=== PATIENT | male | born 1960 | race Caucasian/White ===

== ENCOUNTER 2024-05-16 16:07 | Emergency (ER) | payer MEDICARE, SELFPAY ==
[2024-05-16 16:13] VITALS: BP 150/100; PULSE 77; RESP 16; TEMP 36.5; O2SAT 98; BMI 28.1
--- NOTE | 2024-05-16 16:18 | CRLHL7_ITS ---
For Patients: As a result of the Century Cures Act, medical imaging exams and procedure reports are released immediately into your electronic medical record. You may view this report before your referring provider. If you have questions, please contact your health care provider. INDICATION: Blunt trauma. TECHNIQUE: Right forearm three views. COMPARISON: None. FINDINGS: Comminuted, impacted intra-articular fracture of the distal radius with ventral angulation/displacement of the distal fracture fragment. Mildly displaced fracture of the ulnar styloid. No additional evidence of fracture. Degenerative changes greatest at the 1st carpometacarpal joint. Soft tissue swelling about the wrist. Punctate focus of increased density near the 1st metacarpal phalangeal joint. IMPRESSION: 1. Comminuted, intra-articular and displaced fracture of the distal radius. 2. Ulnar styloid fracture. 3. Punctate foreign body near the 1st metacarpal phalangeal joint. Dictated by Terrance Mcmillan MD @ 05/16/2024 4:49:52 PM (Electronically Signed)
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
[2024-05-16] MEDS: LIDOCAINE 1% MDV 20 ML INJECTION (17:10)
--- OUTSIDE RECORDS SUMMARY | 2024-05-16 17:26 | XMS_ITS | Clinical Summary ---
Author Organization [facility] Address [place], [place] [address] Care Team Providers Care Button Station Worker Name Role Phone Negrito Valdez MD Primary Care Provider [phone] Allergies No known active allergies Medications No known medications Active Problems No known active problems Immunizations Name Administration Dates Next Due Tdap 04/05/2009 Family History Medical History Relation Name Comments Genetic Other Sister had kidn ey stone Relation Name Status Comments Other Social History Tobacco Use Types Packs/Day Years Used Date Smoking Tobacco: Never Smokeless Tobacco: Never Alcohol Use Standard Drinks/Week Comments Not Asked 0 (1 standard drink = 0.6 oz pur e alcohol) Sex and Gender Information Value Date Recorded Sex Assigned at Not on file 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 Gender Identity Not on file Sexual Orientation Not on file Obstetrics History Last Filed Vital Signs Vital Sign Reading Time Taken Comments Blood Pressure 120/78 04/19/2012 1:58 PM FRUIT WASHER Pulse 78 04/19/2012 1:58 PM FRUIT WASHER Temperature 36.8 C (98.3 F) 04/19/2012 1:58 PM FRUIT WASHER Respiratory Rate - - Oxygen Saturation 96% 04/19/2012 1:58 PM FRUIT WASHER Inhaled Oxygen Concentration - - Weight 89.1 kg (196 lb 6.4 oz) 04/19/2012 1:58 P M FRUIT WASHER Height - - Body Mass Index - - Plan of Treatment Health Maintenance Due Date Last Done Comments Depression screening for age 12+ 1971 HIV for age 15-65 1974 BMI (ht and wt on same day) for age 18+ 1977 Hepatitis C screening for age 18-79 1977 Colonoscopy through age 75 02/12/2004 Lipids for age 45-75 02/12/2004 Pneumococcal series for age 50+ (1 of 1 - PCV) 009 Zoster (shingles) series for age 50+ (1 of 2) 02/12/20 09 Tetanus booster 04/05/2019 04/05/2009 COVID-19 vaccine series (1 - 2023- season) Influenza for age 65+ 02/12/2024 RSV vaccine for adults or pr egnancy (1 - 1-dose 75+ series) 2034 Tdap Completed 04/05/2009 Insurance [facility] [place] [id number] Care Teams Button Station Worker Relationship Specialty Start Date End Date Negrito Valdez MD PCP - General Family Practice 12/29/10
[2024-05-16 17:30] VITALS: BP 163/88
[2024-05-16 17:49] VITALS: PULSE 76; RESP 16; O2SAT 97
--- NOTE | 2024-05-16 18:25 | CRLHL7_ITS ---
For Patients: As a result of the Century Cures Act, medical imaging exams and procedure reports are released immediately into your electronic medical record. You may view this report before your referring provider. If you have questions, please contact your health care provider. INDICATION: : Postreduction TECHNIQUE: Three views right wrist COMPARISON: Same day forearm radiographs FINDINGS: The lateral projection is at a slight oblique. Comminuted intra-articular right distal radial fracture. Significant articular surface gap persists of at least 3 millimeters. Mildly displaced ulnar styloid fracture again seen. Small metallic jacklyn at the ulnar aspect of the right thumb metacarpal phalangeal joint. Radioulnar alignment is not well evaluated. Radiocarpal alignment is normal. Splint material in place. IMPRESSION: Redemonstrated displaced intra-articular right distal radial fracture. Dictated by Karla Alfonso MD @ 05/16/2024 7:06:39 PM (Electronically Signed)
== END 2024-05-16 18:59 | disposition home or self-care (01) ==
PROVIDERS: Emergency Provider Emergency Medicine
DX: S52.571A Other intraarticular fracture of lower end of right radius, initial encounter for closed fracture (principal); W23.0XXA Caught, crushed, jammed, or pinched between moving objects, initial encounter; Y92.71 Barn as the place of occurrence of the external cause
CPT/HCPCS: 29125; 73090; 73110; 99283; J2003

== ENCOUNTER 2024-05-19 11:51 | Outpatient (CLI) | payer MEDICARE, SELFPAY | END 2024-05-19 11:52 | disposition home or self-care (01) | PROVIDERS: Visit Provider Family Medicine | DX: Z13.6 Encounter for screening for cardiovascular disorders (principal); Z12.5 Encounter for screening for malignant neoplasm of prostate | CPT/HCPCS: 80061; G0103 ==

== ENCOUNTER 2024-05-22 11:26 | Day surgery (SDC) | payer MEDICARE, SELFPAY ==
[2024-05-22] VITALS (7 sets, daily range): BP systolic 111–146; BP diastolic 65–81; PULSE 55–68; RESP 16–20; TEMP 36.2–36.8; O2SAT 92–100; BMI 28.1
--- OUTSIDE RECORDS SUMMARY | 2024-05-22 11:29 | XMS_ITS | Clinical Summary ---
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 Gender Identity Not on file Sexual Orientation Not on file Obstetrics History Last Filed Vital Signs Vital Sign Reading Time Taken Comments Blood Pressure 120/78 04/19/2012 1:58 PM OFFICE CHAIR ASSEMBLER Pulse 78 04/19/2012 1:58 PM OFFICE CHAIR ASSEMBLER Temperature 36.8 C (98.3 F) 04/19/2012 1:58 PM OFFICE CHAIR ASSEMBLER Respiratory Rate - - Oxygen Saturation 96% 04/19/2012 1:58 PM OFFICE CHAIR ASSEMBLER Inhaled Oxygen Concentration - - Weight 89.1 kg (196 lb 6.4 oz) 04/19/2012 1:58 P M OFFICE CHAIR ASSEMBLER Height - - Body Mass Index - [...] 75+ series) 2034 Tdap Completed 04/05/2009 Insurance [facility] [place] [id number] Care Teams Food Service Employee Relationship Specialty Start Date End Date Negrito Valdez MD PCP - General Family Practice 12/29/10
[2024-05-22] MEDS: LACTATED RINGERS 1000 ML 1,000 ML 100 ML IV (11:55)
--- NOTE | 2024-05-22 12:12 | W.PM.H&PU ---
History & Physical Update History & Physical Update H&P Reviewed and patient assessed: No changes noted
[2024-05-22] MEDS: SODIUM CHLORIDE 0.9 % (FLUSH) 10 ML SYRINGE IVF (12:22)
[2024-05-22] MEDS: 0.9 % SODIUM CHLORIDE 500 ML 500 ML 100 ML IV ×2 (12:30→14:46)
--- NOTE | 2024-05-22 12:31 | SUR.PREOP ---
TIME?OUT:?12:31 PT/RN/MDA?VERIFICATION?OF?SURGICAL?SITE,?PROCEDURE,?AND?CONSENT OBTAINED?PRIOR?TO?INVASIVE?PROCEDURE.YES
[2024-05-22] MEDS: fentaNYL 100 MCG/2 ML inj IVP (12:32)
[2024-05-22] MEDS: MIDAZOLAM HCL 1 MG/ML inj IVP (12:32)
--- NOTE | 2024-05-22 12:39 | P.ANES_ITS ---
Anesthesia Charges Start Date/Time Anesthesia Start Date: 05/22/24 Anesthesia Start Time: 12:42 Stop Date/Time Anesthesia Stop Date: 05/22/24 Anesthesia Stop Time: 14:47 Coding CPT Codes CPT Codes: ANESTH LOWER ARM SURGERY - 67805 ([id number]) P1 - NORMAL HEALTHY PATIENT, QK - FINANCIAL BROKERS 2-4 CNCRNT ANES PROC, QX - GROUNDING ENGINEER SVDinora W/ MED DIRECTION
--- NOTE | 2024-05-22 12:39 | P.NB_ITS ---
Nerve Block Nerve Block Time Seen by Provider: 12:35 Date Seen: 05/22/24 Type of block requested by surgeon for post-operative analgesia: axillary Side: right Time out performed: Yes Verification of patient name: Yes Verification of date of : Yes Site marking: site marked Name of person performing procedure: Pérez Continuous monitoring Was continuous monitoring of O2 sat, B/P, monitoring coordinator, recorded every 15 minutes?: Yes Procedure Checklist: sterile prep, needles and gloves Ultrasound guided. Images saved: Yes Medications given in 5ml increments after negative aspiration: Ropivicaine %: 0.5 mL: 30 Needle gauge: 22 Patient tolerated procedure well: Yes Additional comments: Needle noted adjacent to nerve Block Charges Block Charge (with Pro Fee): Brachial Plexus Use of Ultrasound Machine for Block: Yes- US Guidance/pain block
--- NOTE | 2024-05-22 12:39 | W.ANESCHARGE ---
Anesthesia Charges Start Date/Time Anesthesia Start Date: 05/22/24 Anesthesia Start Time: 12:42 Stop Date/Time Anesthesia Stop Date: 05/22/24 Anesthesia Stop Time: 14:47 Coding CPT Codes CPT Codes: ANESTH LOWER ARM SURGERY - 73885 ([id number]) P1 - NORMAL HEALTHY PATIENT, QK - LAGGING MACHINE OPERATOR 2-4 CNCRNT ANES PROC, QX - JACQUARD LOOM CARD CHANGER SVDinora W/ MED DIRECTION
--- NOTE | 2024-05-22 13:00 | CRLHL7_ITS ---
For Patients: As a result of the Century Cures Act, medical imaging exams and procedure reports are released immediately into your electronic medical record. You may view this report before your referring provider. If you have questions, please contact your health care provider. INDICATION: Right distal radius. TECHNIQUE: Three spot images of the wrist. 0.41 mGy. FINDINGS: Right wrist ORIF. Tiny radiopaque foreign body in the thumb at the level of the CMC joint. Dictated by Dm Witt MD @ 05/23/2024 9:25:44 AM (Electronically Signed)
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
--- NOTE | 2024-05-22 14:53 | P.ANES_ITS ---
Anesthesia Charges Start Date/Time Anesthesia Start Date: 05/22/24 Anesthesia Start Time: 12:42 Stop Date/Time Anesthesia Stop Date: 05/22/24 Anesthesia Stop Time: 14:47 Coding CPT Codes CPT Codes: ANESTH LOWER ARM SURGERY - 63122 ([id number]) P1 - NORMAL HEALTHY PATIENT, QK - SQL SERVER BI DEVELOPER 2-4 CNCRNT ANES PROC, QX - STUDY ABROAD COORDINATOR SVDinora W/ MED DIRECTION
--- NOTE | 2024-05-22 14:53 | W.ANESCHARGE ---
Anesthesia Charges Start Date/Time Anesthesia Start Date: 05/22/24 Anesthesia Start Time: 12:42 Stop Date/Time Anesthesia Stop Date: 05/22/24 Anesthesia Stop Time: 14:47 Coding CPT Codes CPT Codes: ANESTH LOWER ARM SURGERY - 39038 ([id number]) P1 - NORMAL HEALTHY PATIENT, QK - CADMIUM BURNER 2-4 CNCRNT ANES PROC, QX - VENEER TRIMMER SVDinora W/ MED DIRECTION
== END 2024-05-22 15:48 | disposition home or self-care (01) ==
PROVIDERS: Visit Provider Orthopaedic Surgery Sports Medicine
PROC: (CPT 25575; principal; 2024-05-22 13:00)
DX: S52.571A Other intraarticular fracture of lower end of right radius, initial encounter for closed fracture (principal); G89.18 Other acute postprocedural pain
CPT/HCPCS: 25609; 01830; 64415; 73110; 76942; C1713; J2250; J2704; J2795; J3010; J7030; J7120

== ENCOUNTER 2024-09-05 07:30 | Outpatient (RCR) | payer MEDICARE, SELFPAY ==
--- NOTE | 2024-05-24 08:03 | ED.GENADULT ---
HPI - General Adult General Date Seen: 05/16/24 Time Seen by Provider: 05/24/24 08:04 History of Present Illness HPI narrative: This is an addendum to my patient's ER note from 05/16/2024. I inadvertently omitted my physical exam from the previous note. Related Data Previous Rx's ?Medication ?Instructions ?Recorded oxycodone 5 mg tablet 5 mg PO Q4-8H PRN pain #15 tabs 05/22/24 sennosides 8.6 mg-docusate sodium 1 tab-cap PO BID #10 tabs 05/22/24 50 mg tablet (Senna-S) Allergies Allergy/AdvReac Type Severity Reaction Status Date / Time No Known Drug Allergies Allergy Verified 05/19/24 11:23 [facility] Medical History History of kidney stones ?Z87.442 - Personal history of urinary calculi (ICD-10) Surgical History (Updated 05/22/24 @ 14:20 by Rosa Zimmer ~ [facility], [facility]) History of open reduction and internal fixation (ORIF) procedure (05/22/24) ?Z98.890 - Other specified postprocedural states (ICD-10) H/O thumb surgery ?Z98.890 - Other specified postprocedural states (ICD-10) Social History Smoking Status: Never smoker Do you use any of these nicotine containing products: None How often do you have a drink containing alcohol: never AUDIT-C Alcohol total score: 0 Non-prescribed substance use: denies use Caffeine: Yes Exam Narrative: Exam Narrative: Constitutional: Appears well-developed and well-nourished. Alert. Conversant. Non toxic. HENT: Head: Atraumatic. No depressed skull fracture, Raccoon Eyes, Rogers's sign, or hemotympanum. Face normal. TMs normal Nose: Nose normal. Mouth/Throat: Oral mucosa is clear and moist. no trismus. Pharynx normal. Eyes: Conjunctivae normal. EOM normal. Pupils equal, round, and reactive to light. No scleral icterus. Neck: Normal range of motion. Neck supple. No tracheal deviation present. Cardiovascular: Normal rate, regular rhythm. No gallop. No friction rub. No murmur heard. Symmetric radial artery pulses Pulmonary/Chest: Effort normal. No stridor. No respiratory distress. No wheezes. No rales. No rhonchi . No tenderness. Abdominal: Soft. No distension. No mass. No tenderness. No rebound. No guarding. Musculoskeletal: No CT or L-spine tenderness. RUE: Clavicle, shoulder, proximal humerus, deltoid, biceps, triceps, elbow are nontender. No tenderness of the forearm but he has limited pronation and supination because of wrist pain. He has tenderness with swelling and suspected deformity at the distal radius. Seems to be subtle swelling or volar angulation. Not a ?dinner fork? deformity. Range of motion the wrist is somewhat limited by pain. He is able to flex and extend about 20 or 30?. No tenderness to palpation of the thumb, thenar eminence, body of the hand, or digits. Intact radial, median, ulnar sensory function. Normal distal cap refill. Palpable and normal radial pulse per LUE: Normal range of motion. No tenderness. No deformity RLE: Normal range of motion. No edema. No tenderness. No deformity LLE: Normal range of motion. No edema. No tenderness. No deformity Neurological: Alert and oriented to person, place, and time. Normal strength. CN II-VII intact. No sensory deficit. GCS eye subscore is 4. GCS verbal subscore is 5. GCS motor subscore is 6. Normal coordination Skin: Skin is warm and dry. No rash noted. No pallor. Normal capillary refill. Psychiatric: Normal mood. Normal affect. Discharge Plan Departure Take Home Meds: No Action sennosides-docusate sodium [Senna-S] 8.6-50 mg tablet 1 tab-cap PO BID Qty: 10 1RF Rx Instructions: Take while using narcotics. If loose stools, then stop this medication. oxycodone 5 mg tablet 5 mg PO Q4-8H PRN (Reason: pain) Qty: 15 0RF
--- NOTE | 2024-05-24 11:16 | ED.GENADULT ---
HPI - General Adult General Date Seen: 05/16/24 History of Present Illness HPI narrative: This is an addendum to this patient's ER note from 05/16. I inadvertently omitted the HPI section of my note. Please see my previous notes for the patient's ER course, x-ray findings, medical decision making. This was is pleasant 64-year-old gentleman who is generally healthy. 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 He presents to the ER today, accompanied by his ex-, for evaluation of right arm and wrist pain. Prior to arrival he was trying to put some cows into a dominguez when 1 of the cows pushed sideways against the metal fence and he got his right wrist/arm caught between the fence and the post. He suffered an injury. He is having pain in the right wrist and little bit pain rating up to the right shoulder as well. He feels as though he is having trouble moving his wrist and it looks deformed, probably broken. He has no other injuries. He he was not knocked down. He did not hit his head. He does not take any blood thinners. No other pain more proximally in his arms such as in the humerus or shoulder. No head or neck pain. No injuries to his torso. No other significant injuries to his hips, lower extremities. He has no associated numbness or tingling in his right hand. Related Data Previous Rx's ?Medication ?Instructions ?Recorded oxycodone 5 mg tablet 5 mg PO Q4-8H PRN pain #15 tabs 05/22/24 sennosides 8.6 mg-docusate sodium 1 tab-cap PO BID #10 tabs 05/22/24 50 mg tablet (Senna-S) Allergies Allergy/AdvReac Type Severity Reaction Status Date / Time No Known Drug Allergies Allergy Verified 05/19/24 11:23 [facility] Medical History History of kidney stones ?Z87.442 - Personal history of urinary calculi (ICD-10) Surgical History (Updated 05/22/24 @ 14:20 by Rosa Zimmer ~ [facility], [facility]) History of open reduction and internal fixation (ORIF) procedure (05/22/24) ?Z98.890 - Other specified postprocedural states (ICD-10) H/O thumb surgery ?Z98.890 - Other specified postprocedural states (ICD-10) Social History Smoking Status: Never smoker Do you use any of these nicotine containing products: None How often do you have a drink containing alcohol: never AUDIT-C Alcohol total score: 0 Non-prescribed substance use: denies use Caffeine: Yes Discharge Plan Departure Take Home Meds: No Action sennosides-docusate sodium [Senna-S] 8.6-50 mg tablet 1 tab-cap PO BID Qty: 10 1RF Rx Instructions: Take while using narcotics. If loose stools, then stop this medication. oxycodone 5 mg tablet 5 mg PO Q4-8H PRN (Reason: pain) Qty: 15 0RF
--- NOTE | 2024-06-13 16:46 | OT.OPOE ---
OT Outpatient Ortho Eval OT Outpatient Ortho Eval* Start: 06/09/24 16:10 Freq: Status: Active Protocol: Document 06/13/24 15:17 AMB (Rec: 06/13/24 16:43 AMB [id number]) E-signed By Teena Carvajal, OTR/L, CLT, PIPE CONNECTOR OT OP Ortho Eval Details Complexity Complexity Low Insurance Information Insurance Information Blue Cross/Blue Shield, Medicare B Other Insurance BCBS [place] 220 G Insurance Information Comments MC cert due 09/11/24 Outpatient History/Precautions Current Condition/Medical Diagnosis Referring Provider Dr Grover Medical Diagnoses Z98.[address] fiore with ORIF Treatment Diagnosis M25.531 Pain in RUE wrist M25.631 Stiffness RUE wrist R53.1 Weakness RUE hand, wrist , forearm Date of Onset DOI: 05/16/24, DOS: 05/22/24 Precautions Lifting Restrictions Medical Conditions None Medical/Functional History Medical History Reviewed Yes Prior Level of Function/Mobility Pt states he did break his right thumb almost completely off when he was 15yo. He never regained full ROM and his thumb has always been numb since. 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 Pt states he knew right away that it was broken, he drove himself to the ER where it was reduced and he was referred to orthopedics and underwent ORIF of the DR on 05/22/24. Pt states he really has very little to no pain. Pt had his cast removed today and was referred to OT for orthoplast splint and eval and treat. Pt states he still has to be able to tend to his cattle which includes lifting 50# elizabeth of hay and feed. Pt does have some help but still needs to be able to work every day. Pt denies pain but has been noticing that his IF feels numb, states this is new, his thumb is also numb but states that has been numb since his injury at the age of 15. Goniometric Comments Goniometric Comments Goniometric Comments 06/13/24 AROM of BUE is WNL throughout with the exception of the RUE forearm, wrist and hand. AROM of the RUE is as follows: Forearm: Pro/Sup: 35/35 Wrist: Flex/Ext: 30/0 UD/RD: 5/5 Hand: Opposition: Tip of the RF Composite Fist: -4cm from tip of MF to DPC. Hand Pinch/Colorer Hides And Skins Strength Comments Comments 06/13/24 Too early for strength testing. 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 Moderate swelling is appreciated throughout all fingers, thumb and wrist. Surgical incision is still covered with surgical glue, clean, dry, no s/s of infection. Sensation Sensation Assessment Summary Comments 06/13/24 Thumb is numb, this is not new, states it's been numb since an injury as a 15yo, however, pt is noticing mild paresthesia in his IF, this is new, likely related to swelling, trauma and compression of median nn, will monitor. OT Problems Problems Problems Decreased Strength,Decreased Range of Motion,Decreased Dexterity,Pain,Decreased Coordination,Lifting,Gripping Other Problems Writing,Opening Containers, Dressing,Fasteners Patient Potential Good Assessment Assessment Assessment Pt is a very pleasant 64yo referred to OT for custom orthosis and eval and treat following RUE DR fiore with ORIF. Pt demonstrates significant swelling, weakness, and limited AROM throughout the RUE hand, wrist, and forearm. These limitations interfere with pt's ability to lift, carry, barber instructor, twist, etc with his RUE. 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 Pt will benefit from skilled OT intervention to address limitations and to restore full, pain-free use of his RUE . Occupational Therapy Treatment Plan - OP Potential Rehabilitation Potential Good Set Goals Goals Set with Patient Yes Goals Goals 1. Pt will be independent and compliant with HEP in order to resume full, pain-free use of the involved UE. 3 weeks 2. Pt will demonstrate full, pain-free AROM of the involved UE in order to improve ability to grasp and hold. 6 weeks 3. Pt will demonstrate pain- free barber instructor and pinch strength comparable to the uninvolved side in order to improve functional grasp, hold, reach, and lifting ability needed to complete self-care, leisure tasks, and work activities. 8 weeks. Treatment Plan Treatment Plan Evaluation,Edema Control,Joint Mobilization,Manual Therapy, Splinting,Wound Care/Scar Management,Therapeutic Exercise,Therapeutic Activities,Self Care/Home Management,Education Expected Frequency 1-2x Week Expected Duration 8-10 Weeks Home Program Home Program Home Program Initiated Home Program Specifics Pt was provided with training and practice in HEP for non- resisted mm pumps to reduce swelling and gentle AROM exs for his hand, wrist and forearm in order to retore full ROM/use of RUE. Following demo, pt is able to complete exs with minimal cues. Pt was provided with written instructions for use at home. Certification Certification Statement I Certify That: Therapy Services Provided, Therapy Plan Established, Therapy Plan Reviewed Certification Information Clinic ID # [id number] Initial Certification Date 06/13/24 Recertification Due Date 09/11/24 Provider Signature Required Yes Provider Signature Shows Agreement With POC & Medical Necessity Physician NPI Number Write NPI# Here Physician Comment/Change Comment or Changes Physician Signature & Date Requested Please Sign/Date Here
--- NOTE | 2024-09-05 11:44 | OT.OPODN ---
OT Outpatient Ortho Daily Note OT Outpatient Ortho Daily Note* Start: 06/09/24 16:10 Freq: Status: Active Protocol: Document 09/05/24 07:28 AMB (Rec: 09/05/24 11:44 AMB [id number]) E-signed By Teena Carvajal, OTR/L, CLT, SORT LINE Type of Note Type of Note Type of Note Daily Note,Recert/Progress Note Visit Number [id number] Insurance Information Insurance Blue Cross/Blue Shield,Medicare B Information Other Insurance [place]BS [place] 220 G Insurance MC cert due 12/04/24 Information Comments Outpatient History/Precautions Current Condition/Medical Diagnosis Referring Provider Dr Grover Medical Diagnoses Z98.[address] fiore with ORIF Treatment Diagnosis M25.531 Pain in RUE wrist M25.631 Stiffness RUE wrist R53.1 Weakness RUE hand, wrist, forearm Date of Onset DOI: 05/16/24, DOS: 05/22/24 Precautions Lifting Restrictions Medical Conditions None Medical/Functional History Medical History Yes Reviewed Prior Level of Pt states he did break his right thumb almost Function/Mobility completely off when he was 15yo. He never regained full ROM and his thumb has always been numb since. 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 Wrist is aching sometimes, also hard to run the controls on his tractor as he has to use his right hand for all the controls, IF gets really swollen and sore. 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 Pt has hired someone to help, but now his 95yo father has been in the hospital, he usually helps with farming but is now not able to, so he may need to look into hiring another person to help as he knows all the heavy work he does is not helping him heal. Pt feels his pain and swelling is more related to arthritis. OT OP Daily Ortho Note/Assessment Therapeutic Exercise Therapeutic Exercise 13 Minutes (minutes) Therapeutic Exercise Review of HEP with emphasis on care for arthritic Comments symptoms in his fingers including self-massage, contrast bath, and AROM with non-resisted muscle pumps. Also review of isolated joint PROM followed by composite finger stretch into flexion and into extension. Also provided silicone finger sleeves to help with swelling. Manual Therapy Manual Therapy 22 Minutes (minutes) Manual Therapy Provided MT with focus on decongestive tissue Comments mobilization and very gentle AAROM to fingers, wrist, and forearm in order to reduce swelling and improve ROM in LUE hand, wrist and forearm. Completed manual lymph drainage protocol for drainage of fluid from hand, wrist, and forearm. Also provided AAROM of fingers, wrist and forearm. IASTM to palm with Graston tool to improve tissue mobility and reduce swelling. Provided training and practice in self joint mobilization and joint distraction to improve carpal mobility and joint movement. TFM over the APL and EPB tendons to reduce swelling and scar tissue in this area through mobilization of the tendons. Added STM with MFR and TPR into the RUE wrist extensor mm group and TFM over the lateral epicondyle insertion point. Issued additional compression sleeves for fingers Ultrasound Ultrasound Minutes ( 10 minutes) Ultrasound Location RUE extensor mm group and insertion point for anti- & Joint Position inflammatory and circulatory benefit. Ultrasound Frequency 1 MHz Continuous & Mode Intensity (w/cm2) 1.5 Total Occupational Therapy Time Occupational Therapy 45 Minutes Home Program Home Program Home Program Compliant Home Program 07/14/24 Added resisted shoulder abd, ER, lat pull down, Specifics chest press, elbow flex, and elbow extension, wrist RD and extension with green TB (unable to do wrist flexion due to extremely limited supination). Pt was also inst in forearm turns with hammer for stretching and strengthening. 06/20/24 Added resisted motor assembler, tip pinch and lateral pinch strengthening with light putty. IE: Pt was provided with training and practice in HEP for non-resisted mm pumps to reduce swelling and gentle AROM exs for his hand, wrist and forearm in order to retore full ROM/use of RUE. Following demo, pt is able to complete exs with minimal cues. Pt was provided with written instructions for use at home. Goniometric Comments Goniometric Comments Goniometric Comments 09/05/24 AROM of BUE is WNL throughout with the exception of the RUE forearm, wrist and hand. AROM of the RUE is as follows: Forearm: Pro/Sup: 78/58 Wrist: Flex/Ext: 50/40 UD/RD: 28/20 Hand: Opposition: PIP of the SF Composite Fist: .5cm from tip of MF to DPC. Hand Pinch/Wood Treating Inspector Strength Hand Pinch/Wood Treating Inspector Strength Hand Pinch/Wood Treating Inspector Left Hand,Right Hand Strength Left Hand Wood Treating Inspector Strength 136 Position 1 in Elbow Flexion (lbs) Lateral Pinch 28 Strength (lbs) Three Point Pinch ( 27 lbs) Right Hand Wood Treating Inspector Strength 57 Position 1 in Elbow Flexion (lbs) Lateral Pinch 20 Strength (lbs) Three Point Pinch ( 17 lbs) Comments Comments 08/09/24 Pt had significant pain on the release of motor assembler strength testing, also significant thumb pain with 3pt pinch. OT Objective Data Hand Hand Dominance Right Skin/Wounds/Edema Comments 07/14/24 Note significant reduction in swelling throughout the RUE hand and wrist, however, pt still has moderate swelling in all digits. 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 Moderate swelling is appreciated throughout all fingers, thumb and wrist. Surgical incision is still covered with surgical glue, clean, dry, no s/s of infection. Sensation Sensation Assessment 07/14/24 Thumb is still numb and also can be quite Summary Comments painful 06/13/24 Thumb is numb, this is not new, states it's been numb since an injury as a 15yo, however, pt is noticing mild paresthesia in his IF, this is new, likely related to swelling, trauma and compression of median nn, will monitor. OT Problems Problems Problems Decreased Strength,Decreased Range of Motion,Decreased Dexterity,Pain,Decreased Coordination,Lifting,Gripping Other Problems Writing,Opening Containers,Dressing,Fasteners Patient Potential Good Assessment Assessment Assessment Progress remains slow but steady, limited now by significant swelling and pain related to his arthritis. Pt demonstrates significant stiffness in his wrist, forearm and fingers. This limits his ability to grasp and pinch small items like controllers on his tractor and opening seed / feed bags. Discussed the need for joint protection and rest to manage his arthritis. Also reviewed benefits of contrast baths and ex to manage his swelling, he was also provided with silicone finger sleeves to see if this would help reduce finger edema and improve digit ROM. Progress is slow and limited due to his limited availability to attend OT with fieldwork and complications related to his arthritis. However, pt remains motivated and would like to return in a few weeks to re-check progress and update his HEP prn. Occupational Therapy Treatment Plan - OP Potential Rehabilitation Good Potential Set Goals Goals Set with Yes Patient Goals Goals Goals reviewed on 09/05/24 1. Pt will be independent and compliant with HEP in order to resume full, pain-free use of the involved UE. 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 2. Pt will demonstrate full, pain-free AROM of the involved UE in order to improve ability to grasp and hold. 6 weeks This goal is partially met with nice gains in ROM, however, pt is still quite limited, progress has been limited in this area due to heavy work and arthritic related pain and swelling, this goal remains appropriate. 3. Pt will demonstrate pain-free motor assembler and pinch strength comparable to the uninvolved side in order to improve functional grasp, hold, reach, and lifting ability needed to complete self-care, leisure tasks, and work activities. 8 weeks. Pt is showing progress in this area with improved motor assembler and pinch strength, however, pt is still significantly weaker on his RUE vs LUE (>50% of strength on the RUE vs LUE), this goal remains appropriate. Treatment Plan Treatment Plan Evaluation,Edema Control,Joint Mobilization,Manual Therapy,Splinting,Wound Care/Scar Management, Therapeutic Exercise,Therapeutic Activities,Self Care/ Home Management,Education Expected Frequency 1-2x Week Expected Duration 8-10 Weeks Occupational Therapy Billing Units Treatment Minutes Timed Treatment 45 Minutes Total Treatment 45 Minutes Billing Units Manual Therapy 1 Therapeutic Exercise 1 Ultrasound 1 Certification Statement Certification Statement I Certify That: Therapy Services Provided,Therapy Plan Established, Therapy Plan Reviewed Recertification Information Recertification Information Initial 06/13/24 Certification Date Recertification 09/05/24 Start Date Recertification Due 12/04/24 Date Reasons to Continue Pt has shown improvement in ROM, strength and function Skilled Therapy of his RUE. However, pt continues to have significant weakness and limited ROM In his fingers wrist and forearm, also struggling with swelling and arthritic pain. Pt will benefit from continued skilled OT intervention to address deficits in order to restore PLOF with RUE, he will also benefit from additional pt education / training in joint protection and management of his arthritis, which has been exacerbated since this injury. Rehabilitation Good Potential Click To Default ' Per treatment plan Per treatment plan' Continued Plan of Per treatment plan Care and Interventions Provider Signature Yes Required Provider Signature POC & Medical Necessity Shows Agreement With Physician NPI Number Write NPI# Here Physician Comment/ Comment or Changes Change Physician Signature Please Sign/Date Here & Date Requested
== END 2025-01-03 23:59 | disposition home or self-care (01) ==
PROVIDERS: Visit Provider Orthopaedic Surgery Sports Medicine
DX: Z48.89 Encounter for other specified surgical aftercare (principal); M25.531 Pain in right wrist; Z51.89 Encounter for other specified aftercare
CPT/HCPCS: 97035; 97110; 97140; 97165; L3906; X5282